=== PATIENT | male | born 1965 | race Caucasian/White ===

== ENCOUNTER 2023-09-25 23:57 | Emergency (ER) | payer SELFPAY ==
--- NOTE | ~2023-09-25 | CT_ITS ---
Non-contrast Head CT History: Altered mental status Technique: Axial non-contrast imaging of the brain was performed. Dose reduction technique was used on this scan by utilizing automated exposure control and iterative reconstruction technique. The dose -length product (DLP) was 605.33 mGy-cm. Findings: There is no evidence of intracranial hemorrhage, mass lesion, or acute infarct. Brain par enchyma appears normal. The ventricles and subarachnoid spaces are normal in size. The calvarium ap pears normal. The visualized paranasal sinuses and mastoid air cells are clear. Impression: No significant abnormality seen. Reviewed, dictated and finalized at location . Impression: No significant abnormality seen.
--- NOTE | ~2023-09-25 | CT_ITS ---
Noncontrast CT scan of the cervical spine Technique: Multiple contiguous axial [address] images of the cervical spine were obtained and rec onstructed in 2D sagittal and coronal planes on the acquisition scanner. Dose reduction technique was used on this scan by utilizing automated exposure control, adjustment of the mA and/or kV according to patient size. The dose-length product (DLP) was 605.33 mGy-cm. Clinical History: Pain Findings: No fractures or dislocations. There are minimal degenerative disc changes, and mild scatte red facet joint degenerative changes. Probable mild left neural foraminal narrowing at C4-C5. No prev ertebral soft tissue swelling. Impression: No fracture or subluxation of the cervical spine. Reviewed, dictated and finalized at [facility]. Impression: No fracture or subluxation of the cervical spine.
[2023-09-26 00:04] VITALS: BP 135/80; PULSE 76; RESP 16; TEMP 36.3; O2SAT 100
[2023-09-26 00:14] LABS: Basophils Percent Auto 0.4 % (0.2-1.2); Eosinophils Absolute Auto 0.3 K/mm3 (0-0.3); Eosinophils Percent Auto 5.3 % (0-4.4); Hematocrit 40.4 % (42.0-52.0); Hemoglobin 13.5 g/dL (14.0-18.0); Immature Granulocyte Absolute 0.02 K/mm3 (0.00-0.031); Immature Granulocyte Percent A 0.4 % (0-0.5); Lymphocytes Absolute Auto 1.43 K/mm3 (0.9-3.2); Lymphocytes Percent Auto 30.2 % (18.3-44.2); Mean Corpuscular HGB Conc 33.4 g/dl (32-36); Mean Corpuscular Hemoglobin 30.3 pg (26-34); Mean Corpuscular Volume 90.6 fl (80-100); Mean Platelet Volume 8.7 fl (7.4-10.4); Monocytes Absolute Auto 0.4 K/mm3 (0.1-0.6); Monocytes Percent Auto 7.6 % (2.6-8.5); Neutrophils Absolute Auto 2.7 K/mm3 (1.3-6.7); Neutrophils Percent Auto 56.1 % (45.5-73.1); Platelet Count Result 297 k/mm3 (150-375); Red Blood Count 4.46 M/mm3 (4.6-6.20); Red Cell Distribution Width 14.1 % (11.5-14.5); White Blood Count 4.7 K/mm3 (4.5-10.0)
[2023-09-26 00:28] LABS: Ethanol 159 mg/dL (<10)
[2023-09-26 00:30] LABS: Alanine Aminotransferase 15 U/L (6-50); Albumin Level 4.7 g/dL (3.5-5.1); Alkaline Phosphatase 45 U/L (38-126); Anion Gap 11 mmol/L (4-12); Aspartate Amino Transferase 25 U/L (17-59); Bilirubin,Total 0.4 mg/dL (0.2-1.3); Blood Urea Nitrogen 10 mg/dL (9-20); Calcium 9.3 mg/dL (8.4-10.2); Carbon Dioxide 23 mmol/L (22-30); Chloride 109 mmol/L (98-107); Estimated CRCL calculation 67 ml/min; Estimated Glomerular Filt Rate > 60; Glucose 93 mg/dL (65-110); Potassium 4.4 mmol/L (3.4-5.0); Sodium 143 mmol/L (137-145)
[2023-09-26 00:32] LABS: Prothrombin Time 13.5 Seconds (11.1-14.7)
[2023-09-26 00:33] LABS: Partial Thromboplastin Time 29.1 Seconds (22.3-36.8)
--- NOTE | 2023-09-26 01:20 | ED.AMS ---
HPI - Altered Mental Status General Chief Complaint: Altered Mental Status Stated Complaint: altered mental status Time Seen by Provider: 09/26/23 00:35 History of Present Illness HPI narrative: Patient is a 58-year-old male with no past medical history here today with altered mental status after a fall. Patient was reportedly at a family constitution party and drinking today. He had multiple beers as well as Betty. He had gone to go to the bathroom around 6:00 p.m. and family found him down on the ground. They called an ambulance and was brought in to an outside emergency department. There they performed a CT of his brain, lab work, EKG, chest x-ray per family. He was told that he is intoxicated and that is the cause of his symptoms and was discharged home. When he arrived at home he had difficulty identifying different people in his family as well as his dog and seemed much more confused. He had trouble talking when he arrived to the emergency department they note that he is much more responsive at this time. Patient is currently complaining of a diffuse headache with no light sensitivity or associated nausea. He denies any other injuries. The last thing that he remembered was needing to go to the bathroom and then he went to the emergency department. He is unsure if he had any prodromal chest pain, shortness of breath, lightheadedness. Related Data Allergies Allergy/AdvReac Type Severity Reaction Status Date / Time ibuprofen [From Motrin] AdvReac Swelling Verified 09/26/23 00:29 PCN Allergy Unknown Unknown Uncoded 09/26/23 00:29 Review of Systems Review of Systems: All systems reviewed & are unremarkable except as noted in HPI and below Exam Narrative: GENERAL: Well-appearing, well-nourished, and in no acute distress. HEAD: Normocephalic, atraumatic. EYES: PERRLA and EOMI. ENT: Nares clear. Mucous membranes moist. NECK: Supple. CHEST: Clear to auscultation. No respiratory distress. HEART: Regular rate and rhythm. Normal peripheral pulses. ABDOMEN: Soft, nontender, nondistended. EXTREMITIES: Normal range of motion. No edema. No upper lower extremity trauma appreciated. No midline cervical, thoracic, lumbar spine tenderness. SKIN: Warm, dry, no rash. NEURO: No focal deficits. No upper lower extremity drift, follows commands, is able to identify other people in the room without difficulty. Alert and oriented x2. PSYCH: Normal mood and affect. Course Course Emergency Course: Chart review performed. patient here with spouse for altered mental status. He was reportedly found on the ground of his home around 1800 and taken to an outside ED. He was diagnosed with alcohol use and altered mental status. Wouldn't answer questions in triage. Triage vitals normal. Triage lab work reviewed. CBC unremarkable, Electrolytes normal, normal renal function, normal LFTs. ETOH 159. Patient seen evaluated, nontoxic appearing, alert, oriented to self, somewhat delayed on identification of time, follows commands without difficulty. Concern for alcohol intoxication, suspect he may have a concussion after the head trauma he sustained earlier today. Given age will do screening EKG and troponin. Patient denies chest pains. Patient and family agreeable to workup and plan. lab work and imaging reviewed, CBC grossly normal, electrolytes grossly normal with a normal lactic acid. CPK normal, LFTs normal. UA negative for UTI. ETOH 159. Online radiology reports reviewed. CT brain negative for hemorrhage, hydrocephalus, mass effect or herniation. No obvious fracture. CT cervical spine negative. Will reevaluate. Patient monitored here in the emergency department for nearly 6 hours at time of discharge. Reviewed all negative results with patient and family. Discussion of admission versus discharge with primary care follow-up. I suspect patient likely has a concussion given his reassuring workup here today. He also appears to have been quite
[2023-09-26 01:37] VITALS: BP 131/81; PULSE 68; RESP 13; O2SAT 99
[2023-09-26] MEDS: ACETAMINOPHEN 500 MG TABLET 1000 MG PO (01:59)
[2023-09-26 02:19] LABS: Lactic Acid Reflex 1.3 mmol/L (0.7-2.0)
[2023-09-26 02:28] VITALS: BP 140/85; PULSE 65; RESP 14; O2SAT 100
--- NOTE | 2023-09-26 03:05 | PC.NURSE ---
Pt able to speak in full sentences, reports pain 0/10, states he feels better and wants to go home.
[2023-09-26 03:29] LABS: Creatine Kinase 64 U/L (55-170)
[2023-09-26 03:41] LABS: Appearance Urine Clear (Clear); Bilirubin Urine Negative (Negative); Blood Urine Negative (Negative); Color Urine Yellow (Yellow); Glucose Urine UA Negative (Negative); Ketones Urine Negative (Negative); Leukocyte Esterase Ur Negative LEU/UL (Negative); Nitrate Urine Negative (Negative); Protein Urine Negative (Negative); Specific Grav Ur 1.013 (1.001-1.035); Urobilinogen Urine 0.2 mg/dL (<2.0); pH Urine 5.5 (5.0-9.0)
[2023-09-26 03:42] LABS: Add Urine Microscopic? NO
[2023-09-26 05:18] VITALS: BP 144/98; PULSE 67; RESP 14; O2SAT 100
== END 2023-09-26 05:56 | disposition home or self-care (01) ==
PROVIDERS: Emergency Provider Student in an Organized Health Care Education/Training Program; PCP Emergency Medicine
DX: S06.0XAA Concussion with loss of consciousness status unknown, initial encounter (principal); F10.120 Alcohol abuse with intoxication, uncomplicated; Y90.6 Blood alcohol level of 120-199 mg/100 ml
CPT/HCPCS: 36415; 70450; 72125; 80053; 80307; 81003; 82550; 83605; 83735; 85025; 85610; 85730; 99284; A9270